=== PATIENT | female | born 1980 | race Caucasian/White ===

== ENCOUNTER 2017-10-18 18:17 | Emergency (ER) | payer OTHER ==
[~2017-10-18] VITALS: Ht 154.9 cm; Wt 102.5 kg
[~2017-10-18 18:17] MED LIST: DIFLUCAN150 MG PO; DOXYCYCLINE MO100 MG PO; GOOD SENSE IBU200 MG PO; MIRENA52 MG; VICODIN5-300 PO
--- NOTE | 2017-10-18 19:42 | ED GENERAL ADULT ---
History of Present Illness General Chief Complaint: Female Urogenital Problems Stated Complaint: SENT BY TEST ARCHITECT FOR HEAVY BLEEDING X 3WKS Source: patient Exam Limitations: no limitations Vital Signs & Intake/Output Vital Signs & Intake/Output Vital Signs Date Time Temp Pulse Resp B/P B/P Pulse O2 O2 Flow FiO2 Mean Ox Delivery Rate 10/189 98.8 74 18 122/83 98 Room Air 10/18 1823 97.2 75 18 142/84 96 Room Air Allergies Coded Allergies: MDX - Codeine (CODEINE) (Intermediate, HIVES 04/24/13) Reconcile Medications DOXYCYCLINE MONOHYDRATE (Doxycycline Monohydrate) 100 MG CAP 1 CAP PO BID INFECTINO Fluconazole (Diflucan) 150 MG TAB 1 TAB PO ONCE YEAST INFECTION HYDROCODONE/ACETAMINOPHEN (Hydrocodon-Acetaminophen 5-325) 1 TAB TAB 1 TAB PO Q6 PRN PAIN Ibuprofen 200 MG TAB 3 TAB PO PRN PAIN (Reported) Levonorgestrel (Mirena) 52 MG ICR CONTROL (Reported) Triage Note: PT STATES SHE HAS HAD A HEAVY PERIOD FOR 3 WEEKS STRAIGHT. PT STATES SHE SAW HER OBGYN AND WAS SENT IN FOR EVAL. Triage Nurses Notes Reviewed? yes Onset: Gradual Duration: week(s): Timing: constant : No Patient currently breastfeeds: No HPI: 37-year-old female with no known past medical history presenting with vaginal bleeding. Patient reports that she has not menstruated for the past 4-5 months, and then began to have vaginal bleeding 2-3 weeks ago. Initially though the bleeding was a last menstrual period, but has lasted for several weeks. Bleeding has been increasing in severity, currently going through 1-2 pads per hour. Has been passing clots. Now with intermittent lightheadedness and headaches. Patient was seen and evaluated by her TEST ARCHITECT today, had an ultrasound done that showed endometrial thickening. Patient had an endometrial biopsy that was sent today. Was referred into the emergency department by her TEST ARCHITECT provider for r/o anemia. Denies CP and SOB. (Coco Chan) Past History Travel History Traveled to [place] past 21 day No Medical History Any Pertinent Medical History? none TEST ARCHITECT/Reproductive: OVARIAN CYST PCOS Surgical History Surgical History: NONE Psychosocial History What is your primary language Thai Tobacco Use: Never used ETOH Use: occasional use Illicit Drug Use: denies illicit drug use Family History Hx Contributory? No (Coco Chan) Review of Systems Review of Systems Constitutional: Reports: no symptoms. EENTM: Reports: no symptoms. Respiratory: Reports: no symptoms. Cardiovascular: Reports: no symptoms. GI: Reports: no symptoms. Genitourinary: Reports: see HPI. Musculoskeletal: Reports: no symptoms. Skin: Reports: no symptoms. Neurological/Psychological: Reports: see HPI. Hematologic/Endocrine: Reports: no symptoms. Immunologic/Allergic: Reports: no symptoms. (Cooc Chan) Physical Exam Physical Exam General Appearance: well developed/nourished, no apparent distress, alert, awake , comfortable Head: atraumatic, normal appearance Eyes: Bilateral: normal appearance. Neck: normal inspection Respiratory: normal breath sounds, lungs clear Cardiovascular: regular rate/rhythm Gastrointestinal: soft, non-tender Back: normal inspection Extremities: normal inspection Neurologic/Psych: awake, alert, oriented x 3, normal gait, normal mood/affect Skin: intact, normal color, warm/dry Comments: Pelvic exam deferred, spoke with the patient's TEST ARCHITECT provider who already performed a pelvic exam in the office before sending the patient to the emergency department, and stated that a second pelvic exam is not necessary. Core Measures ACS in differential dx? No CVA/TIA Diagnosis: No Sepsis Present: No Sepsis Focused Exam Completed? No (Coco Chan) Progress Differential Diagnoses I considered the following diagnoses in my evaluation of the patient: [Anemia versus spontaneous versus UTI versus cervicitis versus uterine fibroid versus menses versus endometrial cancer] Plan of Care: Orders Procedure Date/time Status URINE 10/18 1940 Complete URINALYSIS 10/18 1940 Complete CBC WITHOUT DIFFERENTIAL 10/18 1940 Complete BASIC METABOLIC PANEL 10/18 1940 Complete TYPE & SCREEN (NOT X-MATCH) 10/18 1940 Complete Laboratory Tests 10/18/172056: Urine Color YEL, Urine Clarity HAZY H, Urine pH 6.0, Ur Specific [place] >= 1.030, Urine Protein 30 H, Urine Ketones NEG, Urine Nitrite NEG, Urine Bilirubin NEG, Urine Urobilinogen 0.2, Ur Leukocyte Esterase NEG, Ur Microscopic SEDIMENT EXAMINED, Urine RBC PACKD H, Urine WBC RARE, Ur Epithelial Cells MOD H, Urine Bacteria MANY H, Urine Hemoglobin LARGE H, Urine Glucose NEG, Urine Test NEGATIVE 10/18/17 2009: Anion Gap 11, Estimated GFR > 60, BUN/Creatinine Ratio 22.0, Glucose 93, Calcium 9.4, CBC w Diff NO MAN DIFF REQ, RBC 4.22, MCV 83.0, MCH 28.3, MCHC 34.1, RDW 13.7, MPV 7.4, Gran % 63.7, Lymphocytes % 26.0, Monocytes % 6.4, Eosinophils % 3.6, Basophils % 0.3, Absolute Granulocytes 5.3, Absolute Lymphocytes 2.2, Absolute Monocytes 0.5, Absolute Eosinophils 0.3, Absolute Basophils 0 Labs are unremarkable, H&H is within normal limits Urine shows a large amount of blood, but is not concerning for infection Vital signs have remained within normal limits Patient reports feeling improved after receiving IV fluids Discussed with patient's TEST ARCHITECT provider and instructed to start the patient on high dose OCPs Patient is declining OCPs at this time Will follow up with TEST ARCHITECT for reevaluation and given strict return precautions Initial ED EKG: none (Coco Chan) Departure Departure Disposition: HOME OR SELF CARE Condition: Stable Clinical Impression Primary Impression: Vaginal bleeding Referrals: Nicholas Joiner MD, I. (PCP/Family) Additional Instructions: Should follow-up with your TRUCK MECHANIC for reevaluation. Return to the emergency department for any new or worsening symptoms. Departure Forms: Customer Survey General Discharge Information (Coco Chan) PA/ARCHITECTURE ANALYST Co-Sign Statement Statement: ED Attending supervision documentation- [] I saw and evaluated the patient. I have also reviewed all the pertinent lab results and diagnostic results. I agree with the findings and the plan of care as documented in the PA's/ARCHITECTURE ANALYST's documentation. [X] I have reviewed the ED Record and agree with the PA's/ARCHITECTURE ANALYST's documentation. [] Additions or exceptions (if any) to the PAs/ARCHITECTURE ANALYST's note and plan are summarized below: [] (Sonam LOZANO,Bryant Kern) Critical Care Note Critical Care Note Critical Care Time: non-applicable (Coco Chan)
[2017-10-18 20:21] LABS: ABSOLUTE BASOPHIL COUNT 0 /CUMM (0.0-0.2); ABSOLUTE EOSINOPHIL COUNT 0.3 /CUMM (0.0-0.7); ABSOLUTE GRANULOCYTE CT 5.3 /CUMM (1.4-6.5); ABSOLUTE LYMPH COUNT 2.2 /CUMM (1.2-3.4); ABSOLUTE MONOCYTE COUNT 0.5 /CUMM (0.10-0.60); BASOPHIL % 0.3 % (0.0-2.0); EOSINOPHIL % 3.6 % (0-5); GRANULOCYTE % 63.7 % (42.2-75.2); MEAN CORPUSCULAR HGB 28.3 PG (27.0-31.0); MEAN CORPUSCULAR HGB CONC 34.1 G/DL (33.0-37.0); MEAN PLATELET VOLUME 7.4 FL (7.4-10.4); PLATELET COUNT 335 /CUMM (130-400); RBC DISTRIBUTION WIDTH 13.7 % (11.5-14.5); RED BLOOD CELL CT 4.22 /CUMM (4.20-5.40); WHITE BLOOD CELL COUNT 8.3 /CUMM (4.8-10.8)
[2017-10-18 21:39] VITALS: BP 122/83
== END 2017-10-18 21:54 ==
LOC: ERH 18:17
PROVIDERS: Physician Assistant
DX: N93.9 Abnormal uterine and vaginal bleeding, unspecified (principal); R42 Dizziness and giddiness
CPT/HCPCS: 81001; 81025; 96360; 96361

== ENCOUNTER → 2017-11-22 | Day surgery (SDC) | payer OTHER ==
[~2017-11-22] VITALS: Ht 154.9 cm; Wt 106.6 kg
--- NOTE | 2017-11-22 15:23 | Operative Report ---
Operative/Inv Procedure Report Surgery Date: 11/22/17 Name of Procedure: Diagnostic Hysteroscopy, D&C Pre-Operative Diagnosis: Menometrorrhagia Post-Operative Diagnosis: same Estimated Blood Loss: scant Surgeon/Head Of Marketing Adometry: Mary Beth Crowell MD Anesthesia: moderate sedation Monitors: EKG, BP, RR, temp O2 sat. IV Fluids: LR Urine Output: not measured in OR Drains: Leon Specimens: ECC, EMC Complications: none Condition: very good Operative Indication: new menometrorrhagia Operative/Procedure Note Note: Patient was placed on the OR table in the dorsal supine position, and IV sedation was administered. She was then carefully placed in the dorsal lithotomy position, and the perineum, vulva, and vagina were sterilly prepped and draped. EUA was done and the uterus was found to be retroverted/ retroflexed. A speculum was placed into the vagina, and the cervix was grasped laterally on both sides with single-tooth tenacula. An ECC was collected. The uterus sounded to 9cm. The cervix was dilated enough to allow entry of the dianostic hysteroscope, which could not be advanced far enough in the cervix due to severe retroflexion, and no visualization of the endometrial cavity was accomplished after multiple attempts. The uterine cavity was then suctioned with a #7 curved suction curette and very scant tissue was obtained. All instruments were then removed, the cervix and vagina were hemostatic, the patient was returned to the supine position, awakened from anesthesia and transferred to the recovery room in very good condition. EBL - scant. Findings: Uterus sounded to 9cm, uterus RV/RF, cavity portillo thin, no active bleeding. Discharge Disposition: Same Day Admissions
== END ==
LOC: STS 02:29
DX: N92.1 Excessive and frequent menstruation with irregular cycle (principal); N85.4 Malposition of uterus; E66.01 Morbid (severe) obesity due to excess calories; Z68.41 Body mass index [BMI] 40.0-44.9, adult
CPT/HCPCS: 81025; 88305; J1885; J2250